=== PATIENT | female | born 1960 | race Caucasian/White ===

== ENCOUNTER → 2016-08-30 | Outpatient (CLI) | payer MEDICAID ==
[~2016-08-30] MED LIST: AMOXIL500 MG PO; ASPIRIN 81MG TA81 MG; CITALOPRAM20 MG PO; CLOPIDOGREL75 M2 PO; EFFIENT10 MG PO; FERROUS SULFAT200 M1 PO; FLEXERIL10 MG PO; HYDROCHLOROTHIA25 M1 PO; LISINOPRIL2.5 MG PO; LOVASTATIN20 MG PO; MECLIZINE25 MG PO; MEDROL 4MG. DOSE4 MG PO; NAPROSYN 500MG500 MG PO; ROBAXIN-750750 MG PO
[2016-08-30 08:17] LABS: HEMOGLOBIN 12.9 g/dL (12.2-16.2); LYMPH # 1.7 K/mm3 (0.7-4.5); LYMPH % 35.6 % (10-50.0)
[2016-08-30 10:21] LABS: BUN 21 mg/dL (7-18); GFR (ESTIMATED) 74 ML/MIN (59-)
== END ==
LOC: LAB 07:57
PROVIDERS: Nurse Practitioner Family
DX: J45.909 Unspecified asthma, uncomplicated (principal); I25.2 Old myocardial infarction; Z00.00 Encounter for general adult medical examination without abnormal findings

== ENCOUNTER → 2016-09-01 | Outpatient (CLI) | payer MEDICAID | LOC: RT 08:45 | DX: J45.909 Unspecified asthma, uncomplicated (principal) ==

== ENCOUNTER → 2016-09-09 | Outpatient (CLI) | payer MEDICAID | LOC: LAB 15:49 | DX: R25.2 Cramp and spasm (principal) ==

== ENCOUNTER → 2017-03-06 | Outpatient (CLI) | payer MEDICAID ==
--- NOTE | 2017-03-08 09:25 | RADIOLOGY REPORT PS360 ---
DIG MAMM-SCREEN BRANDY W/CAD CAD Screening ORDERING PHYSICIAN : Janis Kulkarni APRN PATIENT AGE: 56 years GENDER: Female COMPARISON: Previous mammograms: January 2014, February INDICATION: Routine screening 56-year-old old. No hormones. No new complaints. Noncontributory family history. TECHNIQUE: Standard CC and MLO images were obtained. R2 CAD reviewed. FINDINGS: Moderate asymmetry with scattered fibroglandular elements bilaterally most evident towards upper-outer quadrant right breast. RIGHT BREAST: The asymmetric area of density towards upper-outer quadrant right breast appears stable since 2013; & has actually appears to progressed slightly since 2006 & 2008 mammograms [facility]. Calcification at the superior right breast noted. Not of concern LEFT BREAST: Small area of nodularity the deep left breast just slightly lateral to mid line again noted and stable since prior 2013 and 2015 studies as well. IMPRESSION: Stable bilateral mammogram. Stable asymmetric long-standing appearance focal fibroglandular tissue towards upper-outer quadrant right breast. (This asymmetric area of density has actually regressed since 2007 2006 mammograms, but does warrant continued annual follow-up ) Follow follow-up in one year recommended and should be encouraged BI-RADS CATEGORY: 2_Benign RECOMMENDED FOLLOWUP: 12M 12 MONTH FOLLOW-UP (A letter has been sent to the patient regarding results of the study.)
== END ==
LOC: RAD 02-27 08:30
DX: Z12.31 Encounter for screening mammogram for malignant neoplasm of breast (principal)
CPT/HCPCS: G0202

== ENCOUNTER → 2017-04-07 | Outpatient (CLI) | payer MEDICAID ==
[2017-04-07 09:15] LABS: BILIRUBIN, INDIRECT 0.59 mg/dL (0-0.9); BUN 14 mg/dL (7-18); GFR (ESTIMATED) 64 ML/MIN (59-)
== END ==
LOC: LAB 07:49
PROVIDERS: Internal Medicine
DX: I25.10 Atherosclerotic heart disease of native coronary artery without angina pectoris (principal); I11.9 Hypertensive heart disease without heart failure; E78.5 Hyperlipidemia, unspecified